=== PATIENT | female | born 1950 | race African-American/Black ===

== ENCOUNTER 2018-01-01 17:12 | Emergency (ER) | payer MEDICARE ==
[2018-01-01] MEDS ORDERED: Mag-Al 1200 mg/1200 mg/30 ML UDCUP ONE (17:32)
[2018-01-01] MEDS ORDERED: Pantoprazole 40 MG VIAL ONE (17:32)
[2018-01-01] MEDS ORDERED: Lidocaine Viscous Sol 2% 15 ml UD Cup ONE (17:32)
[2018-01-01 17:35] LABS: #Basophils 0.1 thou/uL (0.0-0.2); #Eosinphils 0.1 thou/uL (0.0-0.7); #Lymphocytes 3.4 thou/uL (1.20-3.40); #Monocytes 0.5 thou/uL (0.11-0.59); #Neutrophils 4.8 thou/uL (1.40-6.50); %Basophils 1.5 % (0.0-1.0); %Eosinophils 0.9 % (0.0-10.0); %Lymphocytes 38.6 % (21.0-51.0); %Monocytes 5.5 % (0.0-10.0); %Neutrophils 53.6 % (42.0-75.0); Hemoglobin 13.4 g/dL (12.0-16.0); Mean Corpuscular Hemoglobin 30.5 pg (27.0-31.0); Mean Corpuscular Volume 92.4 fl (81.0-99.0); Mean Platelet Volume 7.8 fL (7.4-10.4); Platelet Count 478 thou/uL (130-400); RBC Distribution Width 14.5 % (11.5-14.5); Red Blood Cell (RBC) Count 4.38 mill/uL (4.20-5.40); White Blood Cell (WBC) Count 8.9 thou/uL (4.8-10.8)
[2018-01-01 17:58] LABS: ALT (SGPT) 21 U/L (8-55); AST (SGOT) 37 U/L (5-34); Albumin 4.2 g/dL (3.4-4.8); Alkaline Phosphatase 153 U/L (40-150); Anion Gap 14 mmol/L (10-20); BUN (Urea Nitrogen) 14 mg/dL (9.8-20.1); Bilirubin, Total 0.6 mg/dL (0.2-1.2); CK (CPK) 91 U/L (29-168); Calc. Creatinine Clearance 0 mL/min (70-130); Calcium 10.3 mg/dL (7.8-10.44); Carbon Dioxide 29 mmol/L (23-31); Chloride 102 mmol/L (98-107); Estimated GFR-MDRD 71; Globulin 4.2 g/dL (2.4-3.5); Glucose 91 mg/dL (80-115); Lipase 16 U/L (8-78); Potassium 3.3 mmol/L (3.5-5.1); Protein, Total 8.4 g/dL (6.0-8.3); Sodium 142 mmol/L (136-145)
[2018-01-01 18:00] LABS: Troponin I Less than 0.010 ng/mL (< 0.028)
--- NOTE | 2018-01-01 18:57 | RAD ---
ONE VIEW CHEST TWO VIEWS ABDOMEN 01/01/18 HISTORY: Pain. Sharp periumbilical pain, intermittent. COMPARISON: None. FINDINGS: ONE VIEW CHEST: Atherosclerosis of the aorta. Normal cardiac silhouette. The pulmonary vessels and hilum are normal. Costophrenic angles are clear. Chronic changes in the lung parenchyma without consolidation or mass. No pneumothorax or osseous abnormalities. ABDOMEN TWO VIEWS: Nonspecific bowel gas pattern. No suspicious density in the abdomen or pelvis. No differential air fl uid levels. No pneumoperitoneum. There are degenerative changes in both hip joint spaces. IMPRESSION: 1. Atherosclerosis. No acute cardiopulmonary process. 2. Nonspecific bowel gas pattern. POS: [facility]
[2018-01-01 19:09] LABS: Bilirubin Negative (Negative); Blood, Urine Negative (Negative); Clarity CLOUDY (Clear); Glucose, Urine (Dipstick) Negative (Negative); Leukocyte Small (Negative); Nitrite Positive (Negative); Protein, Urine (Dipstick) Negative (Neg-Trace); Specific Gravity, Urine 1.021 (1.002-1.036); pH, Urine 6.5 (5.0-9.0)
[2018-01-01 19:12] LABS: Bacteria/HPF 4+ HPF (None Seen); Hyaline Casts/LPF 0-3 HYALINE CAST LPF (0-3 Hyaline); Pathc Cast-AUWi Flag 0.43 (0-2.49)
[2018-01-01 19:22] LABS: RBC/HPF 0-3 HPF (0-3)
== END 2018-01-01 20:35 | disposition home or self-care (01) ==
LOC: ERS 17:12
DX: K21.9 Gastro-esophageal reflux disease without esophagitis (principal); N39.0 Urinary tract infection, site not specified; E78.5 Hyperlipidemia, unspecified; I10 Essential (primary) hypertension; F17.210 Nicotine dependence, cigarettes, uncomplicated; J44.9 Chronic obstructive pulmonary disease, unspecified; I49.9 Cardiac arrhythmia, unspecified
CPT/HCPCS: 74022; 80053; 81003; 81015; 82550; 82553; 83605; 83690; 84484; 85025; 87077; 87086; 87186; 93005; 96374; C9113

== ENCOUNTER 2018-10-01 06:20 | Emergency (ER) | payer MEDICARE ==
[2018-10-01] MEDS ORDERED: Morphine 4 MG/ML VIAL ONE (07:56)
--- NOTE | 2018-10-01 08:10 | RAD ---
AP VIEW PELVIS: Date: 10/01/18 HISTORY: Fall, complaining of right hip pain. FINDINGS: AP view of pelvis obtained. Severe bilateral hip osteoarthritic change is seen. No evidence of acute fractures or bony lesions seen. Osseous structures are intact. A moderate amount of stool is seen in the colon. IMPRESSION: Severe bilateral hip osteoarthritic changes. POS: [facility]
--- NOTE | 2018-10-01 08:40 | RAD ---
RIGHT HIP TWO VIEWS: History: Fall. Right hip pain. FINDINGS/IMPRESSION: Mild degenerative changes are seen in the right hip joint. No definite fracture or dislocation is caterina ntified. If there is high clinical suspicion for fracture, CT scan should be performed. This study was interpreted in consultation with Dr. Jose David Lopez, who concurs. POS: [facility]
--- NOTE | 2018-10-01 08:55 | RAD ---
RIGHT FEMUR 2 VIEWS: Date: 10/01/18 HISTORY: Fall. Right hip pain. FINDINGS/IMPRESSION: Degenerative changes are seen in the right hip and knee joints. No definite fracture or dislocation i s identified. If there is high clinical suspicion for fracture, a CT scan should be performed. POS: [facility]
--- NOTE | 2018-10-01 09:12 | CT ---
PRELIMINARY REPORT/[facility]/EMERGENTY AFTER-HOURS PROCEDURE CT Head Without Contrast EXAM DATE/TIME: 10/01/2018 6:54 AM CLINICAL HISTORY: 67 years old, female; Injury or trauma; Fall; Initial encounter; Abrasion; Not specified; Patient HX: Ellen presents to ed via ems with C/O head pain and r hip pain S/P mechanical fall at home this am whi le in the bathroom. Per ems PT was able to ambulate with walker S/P fall. PT denies taking any blood thinners. PT states she hit her head and denies any loc. TECHNIQUE: Axial computed tomography images of the head/brain without contrast. COMPARISON: No relevant prior studies available. FINDINGS: Brain: Prominent sulci. Patchy hypodensity of the cerebral white matter which are nonspecific but lik paul secondary to microangiopathic changes. Ventricles: The ventricles are mildly prominent secondary to diffuse volume loss/atrophy. Bones/joints: Normal. No acute fracture. Sinuses: Normal as visualized. No acute sinusitis. Mastoid air cells: Normal as visualized. No mastoid effusion. Soft tissues: Normal. IMPRESSION: Mild age-related changes but no evidence of acute intracranial pathology. Thank you for allowing us to participate in the care of your patient. Dictated and Authenticated by: Leyda Mead MD 10/01/2018 7:00 AM Central Time ([place] & [place]) FINAL REPORT CT BRAIN WITHOUT CONTRAST: Date: 10/01/18 FINDINGS/IMPRESSION: I agree with the preliminary report given by Mike. POS: [facility]
--- NOTE | 2018-10-01 09:33 | RAD ---
LEFT RIBS THREE VIEWS: History: Injury to chest. FINDINGS: The lower left ribs are suboptimally evaluated due to poor exposure. No definite rib fracture identif ied. Left lung appears aerated and clear. IMPRESSION: No acute left rib fracture identified. POS: [facility]
--- NOTE | 2018-10-01 09:54 | CT ---
CT PELVIS WITH CORONAL AND SAGITTAL REFORMATIONS: Date: 10/01/18 HISTORY: Fall. Right hip pain. FINDINGS: There are marked degenerative changes in the hip joints bilaterally. No fracture or dislocation is se en. Degenerative changes are also noted in the visualized portions of the lumbar spine and the sacroi liac joints. IMPRESSION: No CT evidence of hip fracture. POS: [facility]
== END 2018-10-01 11:14 | disposition home or self-care (01) ==
LOC: ERS 06:20
DX: R44.0 Auditory hallucinations (principal); M10.9 Gout, unspecified; J44.9 Chronic obstructive pulmonary disease, unspecified; E78.5 Hyperlipidemia, unspecified; I10 Essential (primary) hypertension; F17.210 Nicotine dependence, cigarettes, uncomplicated; W18.11XA Fall from or off toilet without subsequent striking against object, initial encounter
CPT/HCPCS: 70450; 72170; 72192; 96361; 96374; J2270

== ENCOUNTER 2018-12-02 23:04 | Inpatient (IN) | payer MEDICARE ==
[2018-12-02 23:48] LABS: #Basophils 0.1 thou/uL (0.0-0.2); #Eosinphils 0.1 thou/uL (0.0-0.7); #Lymphocytes 2.7 thou/uL (1.20-3.40); #Monocytes 0.5 thou/uL (0.11-0.59); #Neutrophils 4.4 thou/uL (1.40-6.50); %Basophils 1.3 % (0.0-1.0); %Eosinophils 1.8 % (0.0-10.0); %Lymphocytes 34.4 % (21.0-51.0); %Monocytes 5.9 % (0.0-10.0); %Neutrophils 56.5 % (42.0-75.0); Hemoglobin 13.5 g/dL (12.0-16.0); Mean Corpuscular HGB CONC 32.5 g/dL (32.0-36.0); Mean Corpuscular Hemoglobin 29.7 pg (27.0-31.0); Mean Corpuscular Volume 91.4 fL (78.0-98.0); Mean Platelet Volume 8.6 fL (7.4-10.4); Platelet Count 311 thou/uL (130-400); RBC Distribution Width 13.7 % (11.5-14.5); Red Blood Cell (RBC) Count 4.55 mill/uL (4.20-5.40); White Blood Cell (WBC) Count 7.7 thou/uL (4.8-10.8)
--- NOTE | 2018-12-02 23:49 | RAD ---
CHEST ONE VIEW: 12/02/18 HISTORY: Cough. COMPARISON: 03/04/12. FINDINGS: Cardiac silhouette is magnified by projection. Mediastinum is midline with aortic calcification. No l obar consolidation or evidence of pneumothorax. Left hemidiaphragm is slightly elevated. IMPRESSION: Atherosclerosis. No active cardiopulmonary abnormalities are otherwise demonstrated. POS: [facility]
--- NOTE | 2018-12-02 23:58 | CT ---
CT HEAD NONCONTRAST: 12/02/18 HISTORY: Altered mental status. COMPARISON: 10/01/18. FINDINGS: There is no evidence of acute intracranial hemorrhage or infarct. Chronic ischemic small vessel disea se is again demonstrated. Encephalomalacia at the right anterior basal ganglia is stable. No mass eff ect or shift of midline structures. IMPRESSION: Chronic type findings are stable. No acute intracranial abnormalities are demonstrated. POS: [facility]
[2018-12-03] LABS: ALT (SGPT) 12 U/L (8-55); AST (SGOT) 16 U/L (5-34); Alkaline Phosphatase 111 U/L (40-150); Anion Gap 14 mmol/L (10-20); BUN (Urea Nitrogen) 11 mg/dL (9.8-20.1); Bilirubin, Total 0.5 mg/dL (0.2-1.2); Calc. Creatinine Clearance 0 mL/min (70-130); Calcium 10.2 mg/dL (7.8-10.44); Carbon Dioxide 27 mmol/L (23-31); Chloride 106 mmol/L (98-107); Estimated GFR-MDRD 73; Globulin 3.7 g/dL (2.4-3.5); Glucose 109 mg/dL (80-115); Magnesium 1.9 mg/dL (1.6-2.6); Potassium 3.5 mmol/L (3.5-5.1); Protein, Total 7.7 g/dL (6.0-8.3); Sodium 143 mmol/L (136-145)
[2018-12-03 01:29] LABS: Bilirubin Negative (Negative); Blood, Urine Negative (Negative); Clarity CLOUDY (Clear); Glucose, Urine (Dipstick) Negative (Negative); Leukocyte Small (Negative); Nitrite Positive (Negative); Protein, Urine (Dipstick) Negative (Neg-Trace); Specific Gravity, Urine 1.018 (1.002-1.036)
[2018-12-03 01:31] LABS: Bacteria/HPF 4+ HPF (None Seen); Hyaline Casts/LPF 0-3 HYALINE CAST LPF (0-3 Hyaline); Pathc Cast-AUWi Flag 0.68 (0-2.49)
[2018-12-03] MEDS ORDERED: Aspirin 325 MG TAB ONE (02:33)
--- NOTE | 2018-12-03 03:21 | PDOC.FPRHP ---
- History of Present Illness Chief Complaint: Hallucinations History of Present Illness: 68yo F with pmh of presumed schizophrenia presents with complaint of active auditory hallucinations. Pt denies hx of schizophrenia and states her hallucinations started in last July and that she does take meds Rx by [facility] but that they are not working. The voices are violent and agressive threatening to kill her though she does not personally feel SI or HI. No visual hallucinations. ED Course: Rocephin - Allergies/Adverse Reactions Allergies Allergy/AdvReac Type Severity Reaction Status Date / Time No Known Allergies Allergy Unverified 12/03/18 04:36 - History PMHx: HTN, GERD, possible schizophrenia PSHx: neck surgery FHx: son- schizophrenia Social: 50 pack year smoking, denies alcohol/drugs - Review of Systems General: denies: fever/chills, fatigue Eyes: denies: eye pain, vision changes ENT: denies: nasal congestion, rhinorrhea Respiratory: reports: cough, congestion. denies: shortness of breath Cardiovascular: denies: chest pain, palpitation Gastrointestinal: denies: nausea, vomiting Genitourinary: denies: incontinence, dysuria Skin: denies: lesions, jaundice Musculoskeletal: denies: tenderness Psychological: denies: anxiety, depression - Vital signs BP: [139/69] HR: [96] RR: [18] Tmax: [98.4] Pox: [99]% on [ra] Wt: [110] - Physical Exam Constitutional: NAD, well developed HEENT: normocephalic and atraumatic, EOMI, grossly normal vision, grossly normal hearing Neck: supple, no thyromegaly Chest: no-tender to palpation Heart: RRR, normal S1/S2 Lungs: CTAB, no respiratory distress Abdomen: soft, non-tender Musculoskeletal: normal structure, normal tone Neurological: no focal deficit, normal sensation Skin: no rash/lesions, good turgor Heme/Lymphatic: no unusual bruising or bleeding, no purpura Psychiatric: normal mood and affect, good judgment and insight FMR H&P: Results - Labs Result Diagrams: 12/02/18 23:30 12/02/18 23:30 Lab results: WBC 7.7 thou/uL (4.8-10.8) 12/02/18 23:30 Hgb 13.5 g/dL (12.0-16.0) 12/02/18 23:30 Hct 41.6 % (36.0-47.0) 12/02/18 23:30 MCV 91.4 fL (78.0-98.0) 12/02/18 23:30 Plt Count 311 thou/uL (130-400) 12/02/18 23:30 Neutrophils % 56.5 % (42.0-75.0) 12/02/18 23:30 Sodium 143 mmol/L (136-145) 12/02/18 23:30 Potassium 3.5 mmol/L (3.5-5.1) 12/02/18 23:30 Chloride 106 mmol/L (98-107) 12/02/18 23:30 Carbon Dioxide 27 mmol/L (23-31) 12/02/18 23:30 BUN 11 mg/dL (9.8-20.1) 12/02/18 23:30 Creatinine 0.92 mg/dL (0.6-1.1) 12/02/18 23:30 Glucose 109 mg/dL (80-115) 12/02/18 23:30 Calcium 10.2 mg/dL (7.8-10.44) 12/02/18 23:30 Total Bilirubin 0.5 mg/dL (0.2-1.2) 12/02/18 23:30 AST 16 U/L (5-34) 12/02/18 23:30 ALT 12 U/L (8-55) 12/02/18 23:30 Alkaline Phosphatase 111 U/L (40-150) 12/02/18 23:30 B-Natriuretic Peptide 38.3 pg/mL (0-100) 12/02/18 23:30 Serum Total Protein 7.7 g/dL (6.0-8.3) 12/02/18 23:30 Albumin 4.0 g/dL (3.4-4.8) 12/02/18 23:30 Urine Ketones Negative mg/dL (Negative) 12/03/18 00:14 Urine Blood Negative (Negative) 12/03/18 00:14 Urine Nitrite Positive (Negative) H 12/03/18 00:14 Ur Leukocyte Esterase Small (Negative) H 12/03/18 00:14 Urine RBC 4-6 HPF (0-3) 12/03/18 00:14 Urine WBC 4-6 HPF (0-3) H 12/03/18 00:14 Ur Squamous Epith Cells 7-10 HPF (0-3) H 12/03/18 00:14 Urine Bacteria 4+ HPF (None Seen) H 12/03/18 00:14 FMR H&P: A/P - Problem List (1) Hallucination Current Visit: Yes Status: Acute Code(s): R44.3 - HALLUCINATIONS, UNSPECIFIED (2) HTN (hypertension) Current Visit: Yes Status: Acute Code(s): I10 - ESSENTIAL (PRIMARY) HYPERTENSION (3) GERD (gastroesophageal reflux disease) Current Visit: Yes Status: Acute Code(s): K21.9 - GASTRO-ESOPHAGEAL REFLUX DISEASE WITHOUT ESOPHAGITIS - Plan Hallucinations A- Pt has likely Dx of schizophrenia though she denies it. This would be atypical presentation this late in age P- look for other causes of encephalopathy - ammonia, HIV, RPR, UDS, Serum drug screen - will review outpt EMR for med rec and restart antipsychotic UTI A- UA positive though pt asymptomatic P- UCx - continue rocephin HTN - med rec in AM GERD - med rec in AM CODE: FULL FMR H&P: Upper Level - Pertinent history Ellyn Nguyễn is a 68 year old female who presents to the ED with a chief complaint of worsening auditory hallucinations that prevented her from being able to sleep this evening. She reports having auditory hallucinations since July 2018. She was seen in the ED on 09/2017 with a complaint of fall and auditory hallucinations. She was discharged to [facility] and follow-up with [facility] was arranged. She is unaware of what medications she is supposed to be on for psychosis, but she states that they are not working. - Pertinent findings Vitals: BP: 139/69 RR: 18 P: 96 RR: 18 T: 98.4 O2: 99% on RA Exam: General: Alert and oriented x3; in no distress. Heart: regular rate and rhythm, no murmurs, rubs, or gallops Lungs: clear to auscultation bilaterally Neuro: CN II-XII intact grossly; no focal deficits. CT head: no acute findings; encephalomalacia and chronic ischemic changes. - Plan Date/Time: 12/03/18 0321 Kelly Mcmahon, have evaluated this patient and agree with findings/plan as outlined by internet marketing executive resident. Pertinent changes/additions are listed here. Urinary tract infection - will continue Rocephin - Urine culture pending. Chronic Auditory hallucinations. - likely related to vascular dementia. - will increase Seroquel from 50 to 100 mg. - prns for acute agitation. - [facility] consult in AM Regarding chronic medical problems, will restart home medications. Addendum - Attending - Attending Attestation Date/Time: 12/03/18 3734 I personally evaluated the patient and discussed the management with Dr. Hinds I agree with the History, Examination, Assessment and Plan documented above with any addition or exceptions noted below. Patient with Auditory Hallucinations since July not improved with seroquel , PMHX s/p CVA 2011 ,cervical spine surgery 2011. :Glaucoma,GERD, HTN, COPD, HLD and significant smoking history. recent RX with macrobid for UTI received 1 gram rocephin for UTI at ER. FMHX sibling with [id number] with ovarian CA sister with pancreatic CA and Father and Brother with lung CA. No history of previous mental illness auditory hallucination were threatening her. Patient without paranoid ideation. Patient called EMS because she did not feel safe at home. REc admission CT w/wo with prior CVA and noted CT findings of encephalomalacia rec trial risperdal and expectant management complete course AB for UTI should be stable for dismissal and f/u with [facility].
[2018-12-03] MEDS ORDERED: cefTRIAXone\\ROCEPHIN 1 GM VIAL ONE (03:38)
[2018-12-03 04:35] VITALS: BMI 37.8
[2018-12-03] MEDS ORDERED: Ondansetron ODT 4 MG TAB SL PRN (04:43)
[2018-12-03] MEDS ORDERED: Ondansetron PF 4 MG/2 ML Vial IVP PRN (04:43)
[2018-12-03] MEDS ORDERED: Acetaminophen 325 MG TAB PO PRN (04:51)
[2018-12-03 05:22] LABS: Medtox Control Line Valid? VALID (VALID); Medtox Reader # READER 1; Tricyclic Screen Detected (NotDetected)
[2018-12-03 05:23] LABS: Amphetamine Not Detected (NotDetected); Barbiturates Screen Not Detected (NotDetected); Benzodiazepine Screen Not Detected (NotDetected); Cocaine Metabolite Screen Not Detected (NotDetected); Methadone Not Detected (NotDetected); Methamphetamine Not Detected (NotDetected); Opiate Screen Not Detected (NotDetected); Oxycodone Screen Not Detected (NotDetected); Phencyclidine (PCP) Not Detected (NotDetected); THC/Cannabinoid Screen Not Detected (NotDetected)
[2018-12-03 06:00] LABS: Acetaminophen Less than 6.0 mcg/mL (10.0-30.0); Alcohol Less than 10 mg/dL (Less than 10); Salicylate Less than 8.0 mg/dL (15.0-30.0)
[2018-12-03 06:04] LABS: Troponin I Less than 0.010 ng/mL (< 0.028)
[2018-12-03 06:11] LABS: Syphilis Antibody Nonreactive (Nonreactive); Syphilis Antibody Index 0.06 S/CO (<1.00 Non-Reactive)
[2018-12-03 06:18] LABS: HIV (1/2) Antibody/Antigen Non-Reactive (NonReactive); HIV 1/2 INDEX 0.07 S/CO (<1.00)
[2018-12-03] MEDS: Enoxaparin Sodium 40 MG/0.4 ML SYRINGE SC SCH (08:15)
[2018-12-03] MEDS ORDERED: risperiDONE 1 MG TAB PO SCH (12:00)
[2018-12-04] MEDS ORDERED: cefTRIAXone\\ROCEPHIN 1 GM in Sodium Chloride 0.9% 100 ML IVPB SCH (04:00)
[2018-12-04] MEDS ORDERED: PROVENTIL INHALER 6.7 G (200 INHALATIONS) INH PRN (06:12)
--- NOTE | 2018-12-04 06:18 | PDOC.FM ---
- Subjective Subjective: Pt reports that the voices were not constant overnight, an improvement. She also states that she is still having some tactile hallucinations. She reports some dizziness that is worse when laying to the left. She denies vomiting. I also spoke with pt's daughter who is concerned for her mother's health. - Objective MAR Reviewed: Yes Vital Signs & Weight: Vital Signs (12 hours) Temp Pulse Resp BP BP Pulse Ox 12/04/18 03:45 97.2 F L 95 16 123/58 L 98 12/03/18 20:15 99.3 F 102 H 16 135/60 98 Weight Weight 109.633 kg I&O: 12/02/18 12/03/18 12/04/18 06:59 06:59 06:59 Intake Total 100 1180 Output Total 1250 Balance 100 -70 Result Diagrams: 12/02/18 23:30 12/02/18 23:30 Phys Exam - Physical Examination Constitutional: NAD HEENT: moist MMs Neck: full ROM Respiratory: no wheezing, clear to auscultation bilateral Cardiovascular: RRR, no significant murmur, no rub Gastrointestinal: soft, non-tender, no distention, positive bowel sounds Neurological: moves all 4 limbs Pt has positive dicks-hallpike on the left Psychiatric: A&O x 3 Skin: cap refill <2 seconds Dx/Plan (1) UTI (urinary tract infection) Status: Acute (2) GERD (gastroesophageal reflux disease) Code(s): K21.9 - GASTRO-ESOPHAGEAL REFLUX DISEASE WITHOUT ESOPHAGITIS Status: Acute (3) HTN (hypertension) Code(s): I10 - ESSENTIAL (PRIMARY) HYPERTENSION Status: Acute (4) Hallucination Code(s): R44.3 - HALLUCINATIONS, UNSPECIFIED Status: Acute - Plan Plan: This is a 68 yo female with a pmh of HTN and GERD Auditory and tactile hallucinations -Pt evaluated by [facility] and was a candidate for inpatient psych, however was reevaluated and is no longer a candidate -Pt to continue risperidone -Likely discharged today with outpt psych follow up -Will try to contact [facility] to obtain further information regarding inpatient UTI -Continue rocephin, last dose today HTN -Continue home meds GERD -Continue home meds Benign positional vertigo -Tried jr maneuver with some relief Addendum - Attending - Attending Attestation Date/Time: 12/04/18 1117 I personally evaluated the patient and discussed the management with Dr. Hinds I agree with the History, Examination, Assessment and Plan documented above with any addition or exceptions noted below. Discussed with Family who note struggles patient having with auditory hallucination and unsafe home environment.
[2018-12-04] MEDS ORDERED: Mometasone/Formoterol 120 PUFF INHALER INH SCH (06:30)
[2018-12-04] MEDS ORDERED: Carvedilol 6.25 MG TAB PO SCH (09:00)
[2018-12-04] MEDS ORDERED: Non-Formulary Item 1 EACH (Cholecalciferol (Vitamin D3) [Vitamin D3] 50,000 UNIT) PO SCH (09:00)
[2018-12-04] MEDS ORDERED: risperiDONE 1 MG TAB PO SCH (09:00)
[2018-12-04] MEDS ORDERED: Non-Formulary Item 1 EACH (Budesonide-Formoterol [Symbicort 160-4.5] 2 PUFF) INH SCH (09:00)
[2018-12-04] MEDS ORDERED: Furosemide 20 MG TAB PO SCH (09:00)
[2018-12-04] MEDS ORDERED: Non-Formulary Item 1 EACH (Omeprazole [Omeprazole] 40 MG) PO SCH (09:00)
[2018-12-04] MEDS ORDERED: Ergocalciferol 1.25 MG(50,000 UNITS) CAP PO SCH (09:00)
[2018-12-04] MEDS: Enoxaparin Sodium 40 MG/0.4 ML SYRINGE SC SCH (09:37)
[2018-12-04 12:31] VITALS: BP 166/73; TEMP 97.3
[2018-12-04] MEDS ORDERED: Non-Formulary Item 1 EACH (Atorvastatin Calcium [Lipitor] 80 MG) PO SCH (21:00)
[2018-12-04] MEDS ORDERED: Atorvastatin Calcium 40 MG TAB PO SCH (21:00)
== END 2018-12-04 13:40 | disposition short-term general hospital (02) | DRG 690 ==
LOC: ERS 23:04 → 2NO 12-03 04:31
PROVIDERS: ADMIT Student in an Organized Health Care Education/Training Program; ATTEND Student in an Organized Health Care Education/Training Program
DX: N39.0 Urinary tract infection, site not specified (principal); R44.0 Auditory hallucinations; I10 Essential (primary) hypertension; K21.9 Gastro-esophageal reflux disease without esophagitis; E78.5 Hyperlipidemia, unspecified; J44.9 Chronic obstructive pulmonary disease, unspecified; H81.10 Benign paroxysmal vertigo, unspecified ear; F17.210 Nicotine dependence, cigarettes, uncomplicated
CPT/HCPCS: 36415; 70450; 71045; 80053; 80306; 80307; 81003; 81015; 82140; 82607; 83605; 83735; 83880; 84443; 84484; 85025; 86780; 87077; 87086; 87186; 87389; 93005; 96374; J0696; J1650

== ENCOUNTER 2023-05-10 08:29 | Outpatient (CLI) | payer MEDICARE ==
[2023-05-10 09:37] LABS: Hematocrit 29.5 % (34.9-44.5); Hemoglobin 9.2 g/dL (12.0-15.5); Mean Corpuscular HGB CONC 31.2 g/dL (32.0-36.0); Mean Corpuscular Hemoglobin 28.8 pg (27.0-33.0); Mean Corpuscular Volume 92.2 fl (81.6-98.3); Mean Platelet Volume 10.7 fl (7.4-10.4); Platelet Count 395 10x3/uL (150-450); RBC Distribution Width 16.2 % (11.5-14.5); White Blood Cell (WBC) Count 9.8 10x3/uL (3.5-10.5)
[2023-05-10 09:41] LABS: INR-International Normal Ratio 1.1; PTT 25.6 sec (22.0-33.0); Prothrombin Time 11.9 sec (9.5-12.1)
[2023-05-10 09:43] LABS: Anion Gap 12 mmol/L (10-20); BUN (Urea Nitrogen) 16 mg/dL (9.8-20.1); Calc. Creatinine Clearance 0 mL/min (70-130); Calcium 8.7 mg/dL (7.8-10.44); Carbon Dioxide 25 mmol/L (23-31); Chloride 109 mmol/L (98-107); Estimated GFR 77; Glucose 91 mg/dL (83-110); Potassium 5.1 mmol/L (3.5-5.1); Sodium 141 mmol/L (136-145)
== END 2023-05-10 08:30 | disposition home or self-care (01) ==
LOC: LABBT 08:29
PROVIDERS: ATTEND Urology
DX: Z01.818 Encounter for other preprocedural examination (principal); N20.2 Calculus of kidney with calculus of ureter; N30.00 Acute cystitis without hematuria
CPT/HCPCS: 80048; 85027; 85610; 85730; 93005; 93010

== ENCOUNTER 2023-05-15 08:19 | Day surgery (SDC) | payer MEDICARE ==
[2023-05-10 08:50] VITALS: BMI 31.8
[2023-05-15] MEDS ORDERED: Ertapenem 1 GM in Sodium Chloride 0.9% 100 ML IVPB SCH (09:15)
[2023-05-15] MEDS ORDERED: Iopamidol 30 ML ONE (10:19)
[2023-05-15] MEDS ORDERED: PROPOFOL 200 MG/20 ML VIAL ONE (10:50)
[2023-05-15] MEDS ORDERED: Lidocaine 1% PF 5 ML VIAL ONE (10:50)
[2023-05-15] MEDS ORDERED: Rocuronium Bromide 10 MG/ML (10ML VIAL) ONE (10:50)
[2023-05-15] MEDS ORDERED: PHENYLEPHRINE-NS 100 MCG/ML 10 ML SYRINGE ONE (10:50)
[2023-05-15] MEDS ORDERED: Ondansetron PF 4 MG/2 ML Vial ONE ×2 (10:50→12:15)
[2023-05-15] MEDS ORDERED: Succinylcholine 200 MG/10 ml SYRINGE FS ONE (10:50)
[2023-05-15] MEDS ORDERED: Phenazopyridine HCl 100 MG TAB ONE (12:09)
[2023-05-15] MEDS ORDERED: Oxybutynin 5 MG TAB ONE (12:09)
== END 2023-05-15 15:44 | disposition short-term general hospital (02) ==
LOC: SDC 08:19
PROVIDERS: ATTEND Urology
PROC: 0TC18ZZ Extirpation of Matter from Left Kidney, Via Natural or Artificial Opening Endoscopic (ICD-10-PCS; principal; 2023-05-15)
PROC: 0TC68ZZ Extirpation of Matter from Right Ureter, Via Natural or Artificial Opening Endoscopic (ICD-10-PCS; 2023-05-15)
PROC: 0TC78ZZ Extirpation of Matter from Left Ureter, Via Natural or Artificial Opening Endoscopic (ICD-10-PCS; 2023-05-15)
PROC: 0TC08ZZ Extirpation of Matter from Right Kidney, Via Natural or Artificial Opening Endoscopic (ICD-10-PCS; 2023-05-15)
PROC: 0T778DZ Dilation of Left Ureter with Intraluminal Device, Via Natural or Artificial Opening Endoscopic (ICD-10-PCS; 2023-05-15)
DX: N30.00 Acute cystitis without hematuria (principal); N20.2 Calculus of kidney with calculus of ureter; B96.4 Proteus (mirabilis) (morganii) as the cause of diseases classified elsewhere; E78.00 Pure hypercholesterolemia, unspecified; M62.459 Contracture of muscle, unspecified thigh; I10 Essential (primary) hypertension; Z79.899 Other long term (current) drug therapy; Z79.82 Long term (current) use of aspirin
CPT/HCPCS: 52356; 74018; C1747; C1769; C2617; 74420; J1335; J2405; J2704; J3490; Q9967

== ENCOUNTER 2023-05-24 09:55 | Outpatient (CLI) | payer MEDICARE ==
[2023-05-24 11:15] LABS: Hematocrit 33.3 % (34.9-44.5); Hemoglobin 10.3 g/dL (12.0-15.5); Mean Corpuscular HGB CONC 30.9 g/dL (32.0-36.0); Mean Corpuscular Hemoglobin 28.3 pg (27.0-33.0); Mean Corpuscular Volume 91.5 fl (81.6-98.3); Mean Platelet Volume 10.2 fl (7.4-10.4); Platelet Count 441 10x3/uL (150-450); RBC Distribution Width 15.8 % (11.5-14.5); Red Blood Cell (RBC) Count 3.64 10x6/uL (3.90-5.03)
[2023-05-24 11:28] LABS: INR-International Normal Ratio 1.1; PTT 25.4 sec (22.0-33.0); Prothrombin Time 11.7 sec (9.5-12.1)
[2023-05-24 11:36] LABS: Anion Gap 14 mmol/L (10-20); BUN (Urea Nitrogen) 18 mg/dL (9.8-20.1); Calc. Creatinine Clearance 0 mL/min (70-130); Calcium 9.4 mg/dL (7.8-10.44); Carbon Dioxide 27 mmol/L (23-31); Chloride 105 mmol/L (98-107); Estimated GFR 67; Glucose 95 mg/dL (83-110); Potassium 4.6 mmol/L (3.5-5.1); Sodium 141 mmol/L (136-145)
== END 2023-05-24 09:56 | disposition home or self-care (01) ==
LOC: LABBT 09:55
PROVIDERS: ATTEND Urology
DX: Z01.812 Encounter for preprocedural laboratory examination (principal); N20.2 Calculus of kidney with calculus of ureter
CPT/HCPCS: 80048; 85027; 85610; 85730

== ENCOUNTER 2023-05-29 07:03 | Day surgery (SDC) | payer MEDICARE ==
[2023-05-24 10:35] VITALS: BMI 31.8
[2023-05-29] MEDS ORDERED: Fluconazole In NaCl,Iso-Osm 200 MG in Premix Bag 1 BAG IVPB SCH (07:30)
[2023-05-29] MEDS ORDERED: Ertapenem 1 GM in Sodium Chloride 0.9% 100 ML IVPB SCH (07:30)
[2023-05-29] MEDS ORDERED: Iopamidol 30 ML ONE (08:06)
[2023-05-29] MEDS ORDERED: fentaNYL 50 mcg/mL 1 mL Vial ONE (08:12)
[2023-05-29] MEDS ORDERED: Labetalol HCl 100 MG/20 ML VIAL ONE (08:45)
[2023-05-29] MEDS ORDERED: PROPOFOL 200 MG/20 ML VIAL ONE ×2 (08:45)
[2023-05-29] MEDS ORDERED: Dexamethasone 20 MG/5 ML VIAL ONE (08:45)
[2023-05-29] MEDS ORDERED: Rocuronium Bromide 10 MG/ML (10ML VIAL) ONE (08:45)
[2023-05-29] MEDS ORDERED: Ondansetron PF 4 MG/2 ML Vial ONE (08:45)
[2023-05-29] MEDS ORDERED: Lidocaine 1% PF 5 ML VIAL ONE (08:45)
[2023-05-29] MEDS ORDERED: Oxybutynin 5 MG TAB ONE (11:44)
[2023-05-29] MEDS ORDERED: Phenazopyridine HCl 100 MG TAB ONE (11:45)
== END 2023-05-29 14:49 ==
LOC: SDC 07:03
PROVIDERS: ATTEND Urology
PROC: 0TC08ZZ Extirpation of Matter from Right Kidney, Via Natural or Artificial Opening Endoscopic (ICD-10-PCS; principal; 2023-05-29)
PROC: 0TC68ZZ Extirpation of Matter from Right Ureter, Via Natural or Artificial Opening Endoscopic (ICD-10-PCS; 2023-05-29)
PROC: 0T768DZ Dilation of Right Ureter with Intraluminal Device, Via Natural or Artificial Opening Endoscopic (ICD-10-PCS; 2023-05-29)
DX: N20.2 Calculus of kidney with calculus of ureter (principal); N30.00 Acute cystitis without hematuria; M62.459 Contracture of muscle, unspecified thigh; I10 Essential (primary) hypertension; E78.5 Hyperlipidemia, unspecified; F20.9 Schizophrenia, unspecified; Z79.899 Other long term (current) drug therapy
CPT/HCPCS: 36569; 52356; 74018; 74420; 82365; J3010; 88300; C1747; C1769; C2617; J1100; J1335; J1450; J2405; J2704; J3490; Q9967

== ENCOUNTER 2023-06-12 09:06 | Day surgery (SDC) | payer MEDICARE ==
[2023-06-07 12:37] VITALS: BMI 33.2
[2023-06-12] MEDS ORDERED: fentaNYL 50 mcg/mL 1 mL Vial ONE (09:14)
[2023-06-12] MEDS ORDERED: Famotidine/PF 20 mg/2ml Vial ONE (09:15)
[2023-06-12] MEDS ORDERED: ePHEDrine Sulfate 50 MG/10 ML VIAL ONE (09:15)
[2023-06-12] MEDS ORDERED: SUGAMMADEX SODIUM 200 MG/2 ML VIAL ONE (09:15)
[2023-06-12] MEDS ORDERED: Fluconazole In NaCl,Iso-Osm 200 MG in Premix Bag 1 BAG IVPB SCH (10:00)
[2023-06-12] MEDS ORDERED: Ertapenem 1 GM in Sodium Chloride 0.9% 100 ML IVPB SCH (10:00)
[2023-06-12] MEDS ORDERED: Iopamidol 30 ML ONE (11:18)
[2023-06-12] MEDS ORDERED: Vasopressin 20 UNITS/ML VIAL ONE (11:31)
[2023-06-12] MEDS ORDERED: Phenylephrine 10 MG/ML VIAL ONE (11:32)
[2023-06-12] MEDS ORDERED: Rocuronium Bromide 10 MG/ML (10ML VIAL) ONE (11:45)
[2023-06-12] MEDS ORDERED: Metoprolol Tartrate 5 MG/5 ML VIAL ONE (11:45)
[2023-06-12] MEDS ORDERED: Dexamethasone 20 MG/5 ML VIAL ONE (11:45)
[2023-06-12] MEDS ORDERED: Ondansetron PF 4 MG/2 ML Vial ONE (11:45)
[2023-06-12] MEDS ORDERED: PROPOFOL 200 MG/20 ML VIAL ONE (11:45)
[2023-06-12] MEDS ORDERED: Oxybutynin 5 MG TAB ONE (13:03)
[2023-06-12] MEDS ORDERED: Phenazopyridine HCl 100 MG TAB ONE (13:04)
== END 2023-06-12 14:44 | disposition home or self-care (01) ==
LOC: SDC 09:06
PROVIDERS: ATTEND Urology
PROC: 0TF38ZZ Fragmentation in Right Kidney Pelvis, Via Natural or Artificial Opening Endoscopic (ICD-10-PCS; principal; 2023-06-12)
PROC: 0TF68ZZ Fragmentation in Right Ureter, Via Natural or Artificial Opening Endoscopic (ICD-10-PCS; 2023-06-12)
PROC: 0T768DZ Dilation of Right Ureter with Intraluminal Device, Via Natural or Artificial Opening Endoscopic (ICD-10-PCS; 2023-06-12)
DX: N20.2 Calculus of kidney with calculus of ureter (principal); M62.459 Contracture of muscle, unspecified thigh; I10 Essential (primary) hypertension; E78.5 Hyperlipidemia, unspecified; A49.9 Bacterial infection, unspecified; N30.00 Acute cystitis without hematuria; Z79.2 Long term (current) use of antibiotics; Z79.899 Other long term (current) drug therapy; Z16.30 Resistance to unspecified antimicrobial drugs
CPT/HCPCS: 52356; 74018; 74420; J3010; C1747; C1769; C2617; J1100; J1335; J1450; J2370; J2405; J2704; J3490; Q9967; S0028

== ENCOUNTER 2023-10-16 15:13 | Outpatient (CLI) | payer MEDICARE | END 2023-10-16 15:14 | disposition home or self-care (01) | LOC: BICULT 15:13 | PROVIDERS: ATTEND Urology | DX: N20.0 Calculus of kidney (principal); N28.89 Other specified disorders of kidney and ureter; N28.1 Cyst of kidney, acquired; Z98.890 Other specified postprocedural states | CPT/HCPCS: 76770 ==

== ENCOUNTER 2025-05-11 13:46 | Emergency (ER) | payer MEDICARE ==
[~2025-05-11 13:46] MED LIST: Iopamidol-370 76% 500 ML MDV (1 ML CHARGE) ONE
[2025-05-11] MEDS ORDERED: Ondansetron PF 4 MG/2 ML Vial ONE (15:59)
[2025-05-11 16:36] LABS: #Basophils Less than 0.03 10x3/uL (0.0-0.2); #Eosinophils 0.07 10x3/uL (0.0-0.7); #Monocytes 0.44 10x3/uL (0.11-0.59); #Neutrophils 4.66 10x3/uL (1.40-6.50); %Basophils 0.3 % (0.0-1.0); %Eosinophils 0.9 % (0.0-10.0); %Lymphocytes 31.0 % (21.0-51.0); %Monocytes 5.8 % (0.0-10.0); %Neutrophils 61.9 % (42.0-75.0); Hematocrit 40.0 % (36.0-47.0); Hemoglobin 12.6 g/dL (12.0-16.0); Mean Corpuscular Hemoglobin 28.1 pg (27.0-31.0); Mean Corpuscular Volume 89.3 fL (78.0-98.0); Platelet Count 332 10x3/uL (130-400); Red Blood Cell (RBC) Count 4.48 mill/uL (4.20-5.40); White Blood Cell (WBC) Count 7.54 10x3/uL (4.8-10.8)
[2025-05-11 17:01] LABS: Bacteria/HPF 4+ HPF (None Seen); CAUTI Indications for Culture Acute Hematuria; Glucose, Urine (Dipstick) Normal (Negative); Leukocyte 500 Leu/uL (Negative); Protein, Urine (Dipstick) 50 mg/dL (Neg-Trace); Specific Gravity, Urine 1.021 (1.002-1.036); WBC/HPF Greater than 50 HPF (0-3)
[2025-05-11 17:05] LABS: Urine Culture Reflex Yes Yes
[2025-05-11 17:06] LABS: ALT (SGPT) 7 U/L (Less than 34); AST (SGOT) 18 U/L (11-34); Albumin 4.0 g/dL (3.1-4.5); Alkaline Phosphatase 93 U/L (40-110); Anion Gap 13 mmol/L (10-20); BUN (Urea Nitrogen) 23 mg/dL (9.8-20.1); Bilirubin, Total 0.4 mg/dL (0.3-1.2); Calc. Creatinine Clearance 0 mL/min (70-130); Calcium 9.9 mg/dL (7.8-10.44); Carbon Dioxide 25 mmol/L (23-31); Chloride 106 mmol/L (98-107); Globulin 4.2 g/dL (2.4-3.5); Glucose 87 mg/dL (83-110); Lipase 26 U/L (8-78); Potassium 4.4 mmol/L (3.5-5.1); Sodium 140 mmol/L (136-145)
== END 2025-05-11 18:45 | disposition home or self-care (01) ==
LOC: ERS 13:46
DX: N39.0 Urinary tract infection, site not specified (principal); R31.29 Other microscopic hematuria; I10 Essential (primary) hypertension; F17.210 Nicotine dependence, cigarettes, uncomplicated; Z55.6 Problems related to health literacy
CPT/HCPCS: 70450; 74177; 80053; 81001; 83690; 84484; 85025; 87086; 93005; J2270; J2405; 87077; 96374; 96375